=== PATIENT | male | born 1950 | race Caucasian/White ===

== ENCOUNTER 2017-03-05 10:50 | Emergency (ER) | payer MEDICARE ==
[~2017-03-05 10:50] MED LIST: Sodium Chloride 0.9% 1,000 ML BAG ONE; Sodium Chloride 0.9% 100 ML BAG ONE
[2017-03-05 11:31] LABS: #Basophils 0.1 thou/uL (0.0-0.2); #Eosinphils 0.2 thou/uL (0.0-0.7); #Lymphocytes 1.3 thou/uL (1.20-3.40); #Monocytes 0.7 thou/uL (0.11-0.59); #Neutrophils 4.6 thou/uL (1.40-6.50); %Basophils 1.3 % (0.0-1.0); %Eosinophils 2.7 % (0.0-10.0); %Lymphocytes 19.2 % (21.0-51.0); %Monocytes 9.6 % (0.0-10.0); %Neutrophils 67.2 % (42.0-75.0); Hemoglobin 14.2 g/dL (14.0-18.0); Mean Corpuscular Hemoglobin 30.2 pg (27.0-31.0); Mean Corpuscular Volume 91.5 fl (80.0-94.0); Mean Platelet Volume 6.1 fL (7.4-10.4); Platelet Count 279 thou/uL (130-400); Red Blood Cell (RBC) Count 4.71 mill/uL (4.70-6.10); White Blood Cell (WBC) Count 6.9 thou/uL (4.8-10.8)
--- NOTE | 2017-03-05 11:39 | RAD ---
PORTABLE CHEST: History: Tachycardia. Comparison: January 2014 FINDINGS: Heart size is mildly prominent. Lungs are well aerated. No evidence of vascular congestion. Transven ous pacemaker leads are in place. Questionable density in the left lung base is seen possibly repres enting mild atelectasis. If there is concern of infiltrate, recommend PA and lateral views of chest for better evaluation. POS: [facility]
[2017-03-05 11:45] LABS: ALT (SGPT) 12 U/L (0-55); AST (SGOT) 14 U/L (5-34); Albumin 4.1 g/dL (3.4-4.8); Alkaline Phosphatase 80 U/L (40-150); Anion Gap 14 mmol/L (10-20); BUN (Urea Nitrogen) 13 mg/dL (8.4-25.7); Bilirubin, Total 0.5 mg/dL (0.2-1.2); Calc. Creatinine Clearance 0 mL/min (70-130); Calcium 10.2 mg/dL (7.8-10.44); Carbon Dioxide 26 mmol/L (23-31); Chloride 104 mmol/L (98-107); Estimated GFR-MDRD 69; Globulin 3.5 g/dL (2.4-3.5); Glucose 96 mg/dL (80-115); Potassium 4.3 mmol/L (3.5-5.1); Protein, Total 7.6 g/dL (5.8-8.1); Sodium 140 mmol/L (136-145)
[2017-03-05 11:47] LABS: CKMB 1.3 ng/mL (0-6.6)
--- NOTE | 2017-03-05 13:10 | RAD ---
2 VIEWS OF CHEST: Date: 03/05/17 COMPARISON: 03/05/17. HISTORY: Increased heart rate. Pacemaker. FINDINGS: Two views of the chest show normal sized cardiomediastinal silhouette. A pacemaker is seen with its leads in the right atrium and ventricle. There is no evidence of consolidation, mass, or pleural eff usion. Degenerative changes are seen in the spine. IMPRESSION: No evidence of acute cardiopulmonary disease. POS: [facility]
== END 2017-03-05 14:02 | disposition short-term general hospital (02) ==
LOC: MADERS 10:50
DX: R00.0 Tachycardia, unspecified (principal)
CPT/HCPCS: 71010; 71020; 80053; 82553; 83880; 84484; 85025; 85379; 93005; 96361; 96365; J7050

== ENCOUNTER 2018-04-29 09:19 | Outpatient (CLI) | payer MEDICARE ==
[2018-04-29 10:05] LABS: ALT (SGPT) 25 U/L (8-55); AST (SGOT) 21 U/L (5-34); Albumin 3.9 g/dL (3.4-4.8); Alkaline Phosphatase 91 U/L (40-150); Anion Gap 15 mmol/L (10-20); BUN (Urea Nitrogen) 16 mg/dL (8.4-25.7); Bilirubin, Total 0.7 mg/dL (0.2-1.2); Calc. Creatinine Clearance 0 mL/min (70-130); Calcium 10.5 mg/dL (7.8-10.44); Carbon Dioxide 25 mmol/L (23-31); Chloride 103 mmol/L (98-107); Estimated GFR-MDRD 64; Globulin 3.7 g/dL (2.4-3.5); Glucose 174 mg/dL (80-115); Potassium 4.3 mmol/L (3.5-5.1); Protein, Total 7.6 g/dL (5.8-8.1); Sodium 139 mmol/L (136-145)
== END 2018-04-29 09:20 | disposition home or self-care (01) ==
LOC: MADLAB 09:19
PROVIDERS: ATTEND Nurse Practitioner
DX: I10 Essential (primary) hypertension (principal)
CPT/HCPCS: 36415; 80053